=== PATIENT | female | born 1985 | race Caucasian/White ===

== ENCOUNTER → 2024-06-02 | Outpatient (CLI) | payer OTHER ==
[2024-06-02 18:43] LABS: HCT 42.7 % (37.2-46.3); HGB 13.7 g/dL (12.0-15.0); MCH 28.4 pg (27.0-32.0); MCHC 32.1 g/dL (32.0-37.0); MCV 88.6 FL (80.0-97.0); Mean Platelet Volume 9.3 FL (9.5-12.2); NRBC Per 100 WBC 0 X 10*3/uL (0.00-0.01); Platelet Count 356 X 10*3/uL (140-440); RBC 4.82 X 10*6/uL (4.10-5.20); RDW 12.8 % (11.5-14.5); WBC 4.74 X 10*3/uL (4.50-10.00)
[2024-06-02 18:44] LABS: Basophils # (A) 0.06 X 10*3/uL (0.00-0.10); Basophils % (A) 1.3 %; Eosinophils # (A) 0.03 X 10*3/uL (0.04-0.35); Eosinophils % (A) 0.6 %; Lymphocytes # (A) 1.92 X 10*3/uL (0.90-5.00); Lymphocytes % (A) 40.5 %; Monocytes % (A) 8.4 %; Neutrophils # (A) 2.32 X 10*3/uL (1.80-7.70)
[2024-06-02 21:21] LABS: ALT 32 U/L (8-44); AST 26 U/L (13-35); Albumin 4.8 g/dL (3.8-4.9); Albumin/Globulin Ratio 1.92 Ratio (1.60-3.17); Alkaline Phosphatase 85 U/L (41-126); Blood Urea Nitrogen 12.6 mg/dL (9.0-27.0); Calcium 10.2 mg/dL (8.7-10.3); Chloride 104 mmol/L (96-109); Globulin 2.5 g/dL (1.6-3.3); Glucose 79 mg/dL (70-110); Sodium 140 mmol/L (135-145); Total Bilirubin 0.8 mg/dL (0.3-1.2); Total Protein 7.3 g/dL (6.2-8.2)
== END | disposition home or self-care (01) ==
LOC: LABWHC1 14:06
PROVIDERS: ATTEND Psychiatry & Neurology Psychiatry
DX: Z51.81 Encounter for therapeutic drug level monitoring (principal); Z79.899 Other long term (current) drug therapy
CPT/HCPCS: 36415; 80053; 82306; 84439; 84443; 84479; 85025

== ENCOUNTER → 2024-07-08 | Outpatient (CLI) | payer OTHER ==
--- NOTE | 2024-07-11 07:27 | MM ---
Reason for Exam: Screening (asymptomatic). Last mammogram was performed 2 year(s) and 6 month(s) ago. Patient History: Menarche at age 10. Patient has no children. Premenopausal. Ashkenazi Cheondoism. Maternal aunt had breast cancer, age 60. Risk Values: Jayna 5 year model risk: 0.6%. NCI Lifetime model risk: 11.1%. Prior Study Comparison: 01/28/2022 Bilateral Screening Mammogram, [facility]. Tissue Density: The breasts are heterogeneously dense, which may obscure small masses. Findings: Analyzed By CAD. There is no suspicious group of microcalcifications or new suspicious mass in either breast. Overall Assessment: Negative, BI-RAD 1 Management: Screening Mammogram of both breasts in 1 year. Some advise annual bilateral breast ultrasound surveillance in patients with background dense tissue. Patient should continue monthly self-breast exams. A clinical breast exam by your physician is recommended on an annual basis. This exam should not preclude additional follow-up of suspicious palpable abnormalities. Note on Jayna scores and lifetime risk: 1. A Jayna score greater than 3% is considered moderate risk. If this is the case, consider specialist referral to assess eligibility for a risk reducing agent. 2. If overall lifetime risk for the development of breast cancer is 20% or higher, the patient may qualify for future screening with alternating mammogram and breast MRI. [facility], , 07/11/2024 7:24 AM. Electronically signed and approved by: Kip Quintanilla M.D.
== END | disposition home or self-care (01) ==
LOC: RADMAMWWP 16:02
PROVIDERS: ATTEND Family Medicine
DX: Z12.31 Encounter for screening mammogram for malignant neoplasm of breast (principal); R92.333 Mammographic heterogeneous density, bilateral breasts; Z80.3 Family history of malignant neoplasm of breast
CPT/HCPCS: 77063; 77067

== ENCOUNTER → 2024-07-21 | Outpatient (CLI) | payer OTHER ==
--- NOTE | 2024-07-21 11:15 | MR ---
EXAMINATION TYPE: MR brain wo/w con DATE OF EXAM: 07/21/2024 10:20 AM COMPARISON: 05/12/2023 CLINICAL INDICATION: Female, 38 years old with history of G35 MS, MS yearly follow up, please compare to prior. IV Contrast: 6 cc Gadobutrol (None if empty) TECHNIQUE: Multiplanar, multisequence images of the brain and brainstem is performed without and with utilizing 6 mL intravenous Gadobutrol gadolinium contrast. Demyelinating disease protocol with additional Sagi ttal Flair sequence performed. FINDINGS: T2 Lesions Present : Yes Approximate Number of Lesions: 5 in the right cerebral hemisphere. 2 in the left cerebral hemisphere. Locations Identified : Predominantly subcortical in the temporal lobes, right greater than left Size of Reference Lesion(s): 1. 3 mm left temporal, sagittal image 88. 2 4 mm anterior subcortical at the left frontal insular junction, sagittal image 106 and axial image 14. Enhancing Lesion(s) Present: No T1 Hypointense Lesion(s) Present: Yes Change from Prior: A couple tiny foci have developed. For example, 4 mm anterior frontal insular junc tion on the left axial image 14 and sagittal image 106. Punctate 2 mm subcortical right temporal lobe , sagittal image 194. Diffusion weighted images demonstrate no evidence of a recent infarct or other diffusion abnormality. There is no worrisome extra-axial fluid collection. The ventricular system and cisternal spaces ar e normal in size and appearance. The brain volume is age appropriate. Midline structures demonstrate normal morphology. The craniocervical junction appears within normal limits. Post contrast images demonstrate no abnormal enhancement. The dural venous sinuses appear patent. Mild mucosal thickening ethmoid air cells. Globes are intact. IMPRESSION: 1. Minimal burden of T2 bright white matter change predominantly in the subcortical temporal lobes. A 4 mm focus in the anterior fronto-insular junction on the left is new as is a punctate 2 mm focus galicia bcortical right temporal lobe. 2. No acute intracranial abnormality or enhancing lesion seen. [facility], , 07/21/2024 11:13 AM
== END | disposition home or self-care (01) ==
LOC: RADMRIMAIN 09:07
PROVIDERS: ATTEND Psychiatry & Neurology Neurology
DX: G35 Multiple sclerosis (principal); R90.82 White matter disease, unspecified
CPT/HCPCS: 70553; A9585

== ENCOUNTER → 2024-08-16 | Outpatient (CLI) | payer OTHER | END | disposition home or self-care (01) | LOC: LABWHC1 13:20 | PROVIDERS: ATTEND Psychiatry & Neurology Neurology | DX: G35 Multiple sclerosis (principal); Z79.899 Other long term (current) drug therapy ==

== ENCOUNTER → 2024-08-18 | Outpatient (CLI) | payer OTHER ==
[2024-08-18 19:27] LABS: Basophils # (A) 0.06 X 10*3/uL (0.00-0.10); Basophils % (A) 1.5 %; Eosinophils # (A) 0.06 X 10*3/uL (0.04-0.35); Eosinophils % (A) 1.5 %; HCT 39.6 % (37.2-46.3); HGB 12.6 g/dL (12.0-15.0); Lymphocytes # (A) 1.62 X 10*3/uL (0.90-5.00); Lymphocytes % (A) 40.3 %; MCH 28.1 pg (27.0-32.0); MCHC 31.8 g/dL (32.0-37.0); MCV 88.2 FL (80.0-97.0); Mean Platelet Volume 9.5 FL (9.5-12.2); Monocytes # (A) 0.35 X 10*3/uL (0.20-1.00); Monocytes % (A) 8.7 %; NRBC Per 100 WBC 0 X 10*3/uL (0.00-0.01); Neutrophils # (A) 1.92 X 10*3/uL (1.80-7.70); Neutrophils % (A) 47.8 %; Platelet Count 341 X 10*3/uL (140-440); RBC 4.49 X 10*6/uL (4.10-5.20); RDW 12.4 % (11.5-14.5); WBC 4.02 X 10*3/uL (4.50-10.00)
[2024-08-18 19:42] LABS: Bilirubin, Conjugated 0.23 mg/dL (0.20-0.40); Bilirubin,Unconjugated 0.37 mg/dL (0.20-1.00); Total Bilirubin 0.6 mg/dL (0.3-1.2)
[2024-08-18 19:55] LABS: Hepatitis A Antibody IgM Nonreactive (Nonreactive); Hepatitis B Core IgM Nonreactive (Nonreactive); Hepatitis B Surface Antigen Nonreactive (Nonreactive); Hepatitis C IgG Antibody Nonreactive (Nonreactive)
[2024-08-19 10:01] LABS: HIV-1 RNA Not detected (Not detected); HIV-1 RNA, Quant <20 Copies/mL (<20); LOG HIV Copies/mL <1.30 (<1.30)
== END | disposition home or self-care (01) ==
LOC: LABWHC1 12:45
PROVIDERS: ATTEND Psychiatry & Neurology Neurology
DX: G35 Multiple sclerosis (principal); Z79.899 Other long term (current) drug therapy
CPT/HCPCS: 36415; 80074; 82248; 82977; 84450; 84460; 85025; 86480; 87536